=== PATIENT | female | born 1960 | race Caucasian/White ===

== ENCOUNTER → 2023-09-26 06:08 | Outpatient (REF) | payer BC, SELFPAY ==
[2023-09-26 10:43] LABS: ALT (SGPT) 12 U/L (0-35); AST (SGOT) 32 U/L (14-36); Albumin 3.8 g/dl (3.5-5.0); Alkaline Phosphatase 51 U/L (38-126); Blood Urea Nitrogen 14 mg/dl (7-17); Calcium 8.9 mg/dl (8.4-10.2); Carbon Dioxide 27 mmol/L (22-30); Chloride 107 mmol/L (98-107); Glucose 84 mg/dl (70-99); Sodium 138 mmol/L (135-145); Total Bilirubin 0.7 mg/dl (0.2-1.3); Total Protein 8.2 g/dl (6.3-8.2); eGFR > 60.00
[2023-09-26 10:58] LABS: Free T4 1.42 ng/dl (0.78-2.19)
[2023-09-26 11:12] LABS: TSH 2.34 uIU/ml (0.47-4.68)
[2023-09-26 12:29] LABS: Free T3 2.76 pg/ml (2.77-5.27)
[2023-09-27 18:49] LABS: Thyroglobulin Antibodies <0.9 IU/mL (0.0-4.0); Thyroid Peroxidase Ab (TPO) 80.8 IU/mL (0.0-9.0)
== END ==
LOC: HWLAB 06:08
PROVIDERS: ATTENDING PHYSICIAN Nurse Practitioner Family; FAMILY PHYSICIAN Internal Medicine
DX: E06.3 Autoimmune thyroiditis (principal)
CPT/HCPCS: 36415; 80053; 84439; 84443; 84481; 86376; 86800

== ENCOUNTER → 2023-10-31 05:58 | Outpatient (REF) | payer BC, SELFPAY ==
[2023-10-31 08:49] LABS: % Basophils 0.4 % (0-2); % Eosinophils 2.6 % (0-6); % Lymphocytes 13.6 % (20.5-51.1); % Monocytes 15.4 % (1.7-9.3); Absolute Eosinophils 0.1 10^3/uL (0-0.7); Absolute Lymphocytes 0.3 10^3/uL (1.2-3.4); Absolute Monocytes 0.4 10^3/uL (0.1-0.6); Absolute Neutrophils 1.6 10^3/uL (1.4-6.5); Hematocrit 35.3 % (37.0-47.0); Hemoglobin 11.6 g/dL (12.0-16.0); Mean Corp Hgb Conc. 32.9 g/dL (33.0-37.0); Mean Corpuscular Hgb 30.5 pg (27.0-31.0); Mean Corpuscular Volume 92.9 fL (81.0-99.0); Mean Platelet Volume 10.6 fL (7.4-10.4); Nucleated Red Blood Cells % 0 %; Platelet Count 183 10^3/uL (130-400); Red Cell Dist. Width 14.3 % (11.5-14.5); White Blood Cell Count 2.3 10^3/uL (4.8-10.8)
[2023-10-31 08:51] LABS: Urine Albumin Trace (Neg - Trace); Urine Bilirubin Negative (Negative); Urine Character Clear (Clear); Urine Color Yellow; Urine Glucose Negative (Negative); Urine Ketone Negative (Negative); Urine Leukocyte Negative (Negative); Urine Nitrite Negative (Negative); Urine Occult Blood 3+ (Negative); Urine Specific Gravity 1.025 (<1.030); Urine Urobilinogen Negative (Neg - 1+)
[2023-10-31 08:59] LABS: ALT (SGPT) 12 U/L (0-35); AST (SGOT) 32 U/L (14-36); Albumin 3.9 g/dl (3.5-5.0); Alkaline Phosphatase 53 U/L (38-126); Blood Urea Nitrogen 17 mg/dl (7-17); Calcium 8.9 mg/dl (8.4-10.2); Carbon Dioxide 25 mmol/L (22-30); Chloride 108 mmol/L (98-107); Glucose 83 mg/dl (70-99); Potassium 3.7 mmol/L (3.5-5.1); Sodium 138 mmol/L (135-145); Total Bilirubin 0.6 mg/dl (0.2-1.3); Total Protein 8.4 g/dl (6.3-8.2); eGFR > 60.00
[2023-10-31 09:01] LABS: C-Reactive Protein < 5.00 mg/L (0.0-10.00)
[2023-10-31 09:17] LABS: Vitamin D, 25-OH*** 36.6 ng/mL (30-80)
[2023-10-31 09:21] LABS: Protein/creatinine Ratio 0.1; Urine Protein 16 mg/dl
[2023-10-31 09:36] LABS: Urine Mucus Moderate; Urine Squamous Cell 16-20 /LPF (Few)
[2023-10-31 09:37] LABS: Urine Amorphous Seen; Urine Red Blood Cell 70-80 /HPF (0-2)
[2023-10-31 09:38] LABS: Urine Bacteria Few (Negative); Urine White Cell 0-2 /HPF (0-5)
[2023-10-31 09:43] LABS: Erythrocyte Sed Rate 24 mm/hour (0-20)
[2023-11-02 02:44] LABS: ds-DNA Ab, IgG Reflex To Titer 53 IU (0-24)
[2023-11-03 01:39] LABS: Complement C3 74 mg/dl (88-165)
[2023-11-04 11:02] LABS: ds-DNA Ab, IgG Titer <1:10 (<1:10)
== END ==
LOC: HWLAB 05:58
PROVIDERS: ATTENDING PHYSICIAN Internal Medicine; FAMILY PHYSICIAN Internal Medicine
DX: M32.9 Systemic lupus erythematosus, unspecified (principal); M34.9 Systemic sclerosis, unspecified; M60.9 Myositis, unspecified; Z51.81 Encounter for therapeutic drug level monitoring
CPT/HCPCS: 36415; 80053; 81003; 81015; 82306; 82570; 84156; 85025; 85652; 86140; 86160; 86225; 86256

== ENCOUNTER → 2023-11-03 16:20 | Outpatient (REF) | payer BC, SELFPAY ==
[2023-11-03 14:43] LABS: % Basophils 0.3 % (0-2); % Eosinophils 1.6 % (0-6); % Immature Granulocytes 0.3 % (0-0.5); % Lymphocytes 11.7 % (20.5-51.1); % Monocytes 13.3 % (1.7-9.3); % Neutrophils 72.8 % (42.2-75.2); Absolute Eosinophils 0.1 10^3/uL (0-0.7); Absolute Lymphocytes 0.4 10^3/uL (1.2-3.4); Absolute Monocytes 0.4 10^3/uL (0.1-0.6); Absolute Neutrophils 2.3 10^3/uL (1.4-6.5); Hematocrit 33.4 % (37.0-47.0); Hemoglobin 11.1 g/dL (12.0-16.0); Mean Corp Hgb Conc. 33.2 g/dL (33.0-37.0); Mean Corpuscular Volume 93.3 fL (81.0-99.0); Mean Platelet Volume 11.1 fL (7.4-10.4); Nucleated Red Blood Cells % 0 %; Platelet Count 176 10^3/uL (130-400); Red Blood Cell Count 3.58 10^6/uL (4.20-5.40); White Blood Cell Count 3.2 10^3/uL (4.8-10.8)
[2023-11-03 15:56] LABS: Folate 11.6 ng/ml (2.76-20); Vitamin B12 343 pg/ml (239-931)
== END ==
LOC: OIDL 16:20
PROVIDERS: ATTENDING PHYSICIAN Internal Medicine Hematology & Oncology
DX: D72.818 Other decreased white blood cell count (principal)
CPT/HCPCS: 82607; 82746; 85025

== ENCOUNTER → 2023-12-11 07:41 | Outpatient (REF) | payer BC, SELFPAY | LOC: RSP 07:41 | PROVIDERS: ATTENDING PHYSICIAN Internal Medicine; FAMILY PHYSICIAN Internal Medicine | DX: M32.9 Systemic lupus erythematosus, unspecified (principal); M34.9 Systemic sclerosis, unspecified | CPT/HCPCS: 94727; 94729; 88738; 94010 ==

== ENCOUNTER → 2024-02-04 06:05 | Outpatient (REF) | payer BC, SELFPAY ==
[2024-02-04 09:35] LABS: Urine Albumin Negative (Neg - Trace); Urine Bilirubin Negative (Negative); Urine Character Clear (Clear); Urine Color Yellow; Urine Glucose Negative (Negative); Urine Ketone Negative (Negative); Urine Leukocyte Negative (Negative); Urine Nitrite Negative (Negative); Urine Occult Blood Trace (Negative); Urine Specific Gravity 1.015 (<1.030); Urine Urobilinogen Negative (Neg - 1+)
[2024-02-04 09:37] LABS: % Eosinophils 2.7 % (0-6); % Lymphocytes 11.1 % (20.5-51.1); % Monocytes 11.1 % (1.7-9.3); % Neutrophils 75.1 % (42.2-75.2); Absolute Eosinophils 0.1 10^3/uL (0-0.7); Absolute Lymphocytes 0.3 10^3/uL (1.2-3.4); Absolute Monocytes 0.3 10^3/uL (0.1-0.6); Absolute Neutrophils 1.7 10^3/uL (1.4-6.5); Hemoglobin 11.1 g/dL (12.0-16.0); Mean Corp Hgb Conc. 32.6 g/dL (33.0-37.0); Mean Corpuscular Hgb 31.4 pg (27.0-31.0); Mean Corpuscular Volume 96.3 fL (81.0-99.0); Mean Platelet Volume 11.2 fL (7.4-10.4); Nucleated Red Blood Cells % 0 %; Platelet Count 159 10^3/uL (130-400); Red Blood Cell Count 3.53 10^6/uL (4.20-5.40); Red Cell Dist. Width 14.6 % (11.5-14.5)
[2024-02-04 09:51] LABS: ALT (SGPT) < 10 U/L (0-35); AST (SGOT) 28 U/L (14-36); Albumin 3.8 g/dl (3.5-5.0); Alkaline Phosphatase 48 U/L (38-126); Blood Urea Nitrogen 14 mg/dl (7-17); Calcium 8.9 mg/dl (8.4-10.2); Carbon Dioxide 26 mmol/L (22-30); Chloride 109 mmol/L (98-107); Creatine Phosphokinase 61 U/L (30-135); Glucose 88 mg/dl (70-99); Sodium 142 mmol/L (135-145); Total Bilirubin 0.6 mg/dl (0.2-1.3); Total Protein 7.9 g/dl (6.3-8.2); eGFR > 60.00
[2024-02-04 09:58] LABS: Free T4 1.04 ng/dl (0.78-2.19)
[2024-02-04 10:13] LABS: TSH 4.31 uIU/ml (0.47-4.68)
[2024-02-04 10:15] LABS: White Blood Cell Count 2.3 10^3/uL (4.8-10.8)
[2024-02-04 10:17] LABS: Urine Mucus Few
[2024-02-04 10:18] LABS: Urine White Cell 0-2 /HPF (0-5)
[2024-02-04 10:37] LABS: Protein/creatinine Ratio 0.1; Urine Protein 8 mg/dl
[2024-02-04 23:36] LABS: Complement C3 74 mg/dl (88-165)
[2024-02-05 21:52] LABS: Aldolase 3.5 U/L (1.2-7.6)
[2024-02-06 01:27] LABS: ds-DNA Ab, IgG Reflex To Titer 22 IU (0-24)
== END ==
LOC: HWLAB 06:05
PROVIDERS: ATTENDING PHYSICIAN Internal Medicine; FAMILY PHYSICIAN Internal Medicine; REFERRING PHYSICIAN Internal Medicine Endocrinology, Diabetes & Metabolism
DX: M32.9 Systemic lupus erythematosus, unspecified (principal); Z51.81 Encounter for therapeutic drug level monitoring; E06.3 Autoimmune thyroiditis; M34.9 Systemic sclerosis, unspecified
CPT/HCPCS: 36415; 80053; 81003; 81015; 82085; 82550; 82570; 84156; 84439; 84443; 85025; 86160; 86225

== ENCOUNTER → 2024-02-18 15:30 | Outpatient (REF) | payer BC, SELFPAY ==
[2024-02-18 16:28] LABS: Urine Albumin Negative (Neg - Trace); Urine Bilirubin Negative (Negative); Urine Character Clear (Clear); Urine Color Yellow; Urine Glucose Negative (Negative); Urine Ketone Negative (Negative); Urine Leukocyte Negative (Negative); Urine Nitrite Negative (Negative); Urine Occult Blood Negative (Negative); Urine Urobilinogen Negative (Neg - 1+)
[2024-02-18 17:16] LABS: Protein/creatinine Ratio 0.1; Urine Protein 10 mg/dl
== END ==
LOC: REG 15:30
PROVIDERS: ATTENDING PHYSICIAN Internal Medicine; FAMILY PHYSICIAN Internal Medicine; REFERRING PHYSICIAN Surgery
DX: M06.4 Inflammatory polyarthropathy (principal); M32.9 Systemic lupus erythematosus, unspecified; M34.9 Systemic sclerosis, unspecified; M35.00 Sjogren syndrome, unspecified; Z51.81 Encounter for therapeutic drug level monitoring
CPT/HCPCS: 81003; 82570; 84156

== ENCOUNTER → 2024-02-25 14:35 | Outpatient (REF) | payer BC, SELFPAY | LOC: HWRAD 14:35 | PROVIDERS: ATTENDING PHYSICIAN Internal Medicine Endocrinology, Diabetes & Metabolism; FAMILY PHYSICIAN Internal Medicine | DX: E06.3 Autoimmune thyroiditis (principal) | CPT/HCPCS: 76536 ==

== ENCOUNTER → 2024-05-15 08:30 | Outpatient (REF) | payer BC, SELFPAY | LOC: WDC 08:30 | PROVIDERS: ATTENDING PHYSICIAN Obstetrics & Gynecology; FAMILY PHYSICIAN Internal Medicine | DX: Z12.31 Encounter for screening mammogram for malignant neoplasm of breast (principal) | CPT/HCPCS: 77063; 77067 ==

== ENCOUNTER → 2024-06-07 06:08 | Outpatient (REF) | payer BC, SELFPAY ==
[2024-06-07 09:45] LABS: % Basophils 0.4 % (0-2); % Eosinophils 3.5 % (0-6); % Immature Granulocytes 0.4 % (0-0.5); % Lymphocytes 12.9 % (20.5-51.1); % Monocytes 14.1 % (1.7-9.3); % Neutrophils 68.7 % (42.2-75.2); Absolute Eosinophils 0.1 10^3/uL (0-0.7); Absolute Lymphocytes 0.3 10^3/uL (1.2-3.4); Absolute Monocytes 0.4 10^3/uL (0.1-0.6); Absolute Neutrophils 1.8 10^3/uL (1.4-6.5); Hematocrit 33.3 % (37.0-47.0); Mean Corpuscular Hgb 31.3 pg (27.0-31.0); Mean Corpuscular Volume 94.9 fL (81.0-99.0); Mean Platelet Volume 10.3 fL (7.4-10.4); Nucleated Red Blood Cells % 0 %; Platelet Count 172 10^3/uL (130-400); Red Blood Cell Count 3.51 10^6/uL (4.20-5.40); Red Cell Dist. Width 14.3 % (11.5-14.5); White Blood Cell Count 2.6 10^3/uL (4.8-10.8)
[2024-06-07 10:27] LABS: ALT (SGPT) 13 U/L (0-35); AST (SGOT) 27 U/L (14-36); Albumin 3.9 g/dl (3.5-5.0); Alkaline Phosphatase 42 U/L (38-126); Blood Urea Nitrogen 19 mg/dl (7-17); Calcium 9.1 mg/dl (8.4-10.2); Carbon Dioxide 26 mmol/L (22-30); Chloride 107 mmol/L (98-107); Creatine Phosphokinase 53 U/L (30-135); Glucose 90 mg/dl (70-99); Potassium 3.8 mmol/L (3.5-5.1); Sodium 145 mmol/L (135-145); Total Bilirubin 0.5 mg/dl (0.2-1.3); Total Protein 7.8 g/dl (6.3-8.2); eGFR > 60.00
[2024-06-07 10:33] LABS: Urine Albumin Trace (Neg - Trace); Urine Bilirubin Negative (Negative); Urine Character Very Cloudy (Clear); Urine Color Yellow; Urine Glucose Negative (Negative); Urine Ketone Negative (Negative); Urine Leukocyte Trace (Negative); Urine Nitrite Negative (Negative); Urine Occult Blood 2+ (Negative); Urine Urobilinogen Negative (Neg - 1+)
[2024-06-07 10:35] LABS: C-Reactive Protein < 5.00 mg/L (0.0-10.00)
[2024-06-07 11:14] LABS: Urine Bacteria Moderate (Negative); Urine Red Blood Cell 16-20 /HPF (0-2)
[2024-06-07 12:06] LABS: Erythrocyte Sed Rate 24 mm/hour (0-20)
[2024-06-07 13:52] LABS: Complement C3 77 mg/dl (88-165)
[2024-06-07 14:19] LABS: Urine Protein 9 mg/dl
[2024-06-08 23:12] LABS: Aldolase 3.8 U/L (1.2-7.6)
[2024-06-09 16:29] LABS: ds-DNA Ab, IgG Reflex To Titer 36 IU (0-24)
== END ==
LOC: HWLAB 06:08
PROVIDERS: ATTENDING PHYSICIAN Internal Medicine; FAMILY PHYSICIAN Internal Medicine
DX: M06.4 Inflammatory polyarthropathy (principal); M32.9 Systemic lupus erythematosus, unspecified; M34.9 Systemic sclerosis, unspecified; M35.00 Sjogren syndrome, unspecified; Z51.81 Encounter for therapeutic drug level monitoring
CPT/HCPCS: 36415; 80053; 81003; 81015; 82085; 82550; 82570; 84156; 85025; 85652; 86140; 86160; 86225

== ENCOUNTER → 2024-08-20 06:01 | Outpatient (REF) | payer BC, SELFPAY ==
[2024-08-20 09:38] LABS: % Basophils 0.5 % (0-2); % Eosinophils 2.3 % (0-6); % Lymphocytes 13.1 % (20.5-51.1); % Monocytes 15.3 % (1.7-9.3); % Neutrophils 68.8 % (42.2-75.2); Absolute Eosinophils 0.1 10^3/uL (0-0.7); Absolute Lymphocytes 0.3 10^3/uL (1.2-3.4); Absolute Monocytes 0.3 10^3/uL (0.1-0.6); Absolute Neutrophils 1.5 10^3/uL (1.4-6.5); Hematocrit 35.6 % (37.0-47.0); Hemoglobin 11.4 g/dL (12.0-16.0); Mean Corpuscular Hgb 31.6 pg (27.0-31.0); Mean Corpuscular Volume 98.6 fL (81.0-99.0); Mean Platelet Volume 10.9 fL (7.4-10.4); Nucleated Red Blood Cells % 0 %; Platelet Count 157 10^3/uL (130-400); Red Blood Cell Count 3.61 10^6/uL (4.20-5.40); Red Cell Dist. Width 13.4 % (11.5-14.5); White Blood Cell Count 2.2 10^3/uL (4.8-10.8)
[2024-08-20 10:15] LABS: Vitamin D, 25-OH*** 26.8 ng/mL (30-80)
[2024-08-20 10:33] LABS: Ferritin 14.7 ng/ml (11.1-264.0)
[2024-08-20 10:54] LABS: HDL Cholesterol 67 mg/dl; Iron 77 ug/dl (37-170); LDL Cholesterol, Calculated 120 mg/dl; Total Cholesterol 202 mg/dl (50-199); Triglyceride 78 mg/dl (10-149); Very Low Density Lipoprotein 15 mg/dl (0-30)
[2024-08-20 11:03] LABS: Percent Saturation 29 % (20-50); Total Iron Binding Capacity 260 ug/dl (265-497)
[2024-08-20 11:04] LABS: Folate 9.7 ng/ml (2.76-20); Vitamin B12 512 pg/ml (239-931)
== END ==
LOC: HWLAB 06:01
PROVIDERS: ATTENDING PHYSICIAN Internal Medicine Hematology & Oncology; FAMILY PHYSICIAN Internal Medicine; REFERRING PHYSICIAN Internal Medicine
DX: E78.49 Other hyperlipidemia (principal); D72.818 Other decreased white blood cell count; D51.9 Vitamin B12 deficiency anemia, unspecified; D70.9 Neutropenia, unspecified
CPT/HCPCS: 36415; 80061; 82306; 82607; 82728; 82746; 83540; 83550; 85025

== ENCOUNTER → 2024-10-16 07:10 | Outpatient (REF) | payer BC, SELFPAY ==
[2024-10-16 08:43] LABS: Urine Albumin 1+ (Neg - Trace); Urine Bilirubin Negative (Negative); Urine Character Clear (Clear); Urine Color Yellow; Urine Glucose Negative (Negative); Urine Ketone Negative (Negative); Urine Leukocyte Negative (Negative); Urine Nitrite Negative (Negative); Urine Occult Blood Negative (Negative); Urine Specific Gravity 1.025 (<1.030); Urine Urobilinogen Negative (Neg - 1+)
[2024-10-16 08:55] LABS: Urine Mucus Many
[2024-10-16 08:56] LABS: Urine Bacteria Moderate (Negative)
[2024-10-16 09:07] LABS: ALT (SGPT) 12 U/L (0-35); AST (SGOT) 26 U/L (14-36); Albumin 3.9 g/dl (3.5-5.0); Alkaline Phosphatase 51 U/L (38-126); Blood Urea Nitrogen 19 mg/dl (7-17); Calcium 9.2 mg/dl (8.4-10.2); Carbon Dioxide 27 mmol/L (22-30); Chloride 106 mmol/L (98-107); Creatine Phosphokinase 46 U/L (30-135); Glucose 83 mg/dl (70-99); Potassium 4.3 mmol/L (3.5-5.1); Sodium 139 mmol/L (135-145); Total Bilirubin 0.7 mg/dl (0.2-1.3); eGFR 56.46
[2024-10-16 09:14] LABS: C-Reactive Protein < 5.00 mg/L (0.0-10.00)
[2024-10-16 09:39] LABS: Erythrocyte Sed Rate 15 mm/hour (0-20)
[2024-10-16 09:40] LABS: Urine Protein < 5 mg/dl
[2024-10-16 09:44] LABS: TSH Reflex To Free T4 3.98 uIU/ml (0.47-4.68)
[2024-10-16 10:30] LABS: % Basophils 0.4 % (0-2); % Eosinophils 1.8 % (0-6); % Lymphocytes 11.9 % (20.5-51.1); % Monocytes 11.9 % (1.7-9.3); Absolute Lymphocytes 0.3 10^3/uL (1.2-3.4); Absolute Monocytes 0.3 10^3/uL (0.1-0.6); Absolute Neutrophils 1.7 10^3/uL (1.4-6.5); Hematocrit 37.9 % (37.0-47.0); Hemoglobin 12.4 g/dL (12.0-16.0); Mean Corp Hgb Conc. 32.7 g/dL (33.0-37.0); Mean Corpuscular Hgb 31.8 pg (27.0-31.0); Mean Corpuscular Volume 97.2 fL (81.0-99.0); Mean Platelet Volume 10.6 fL (7.4-10.4); Nucleated Red Blood Cells % 0 %; Platelet Count 157 10^3/uL (130-400); Red Cell Dist. Width 13.3 % (11.5-14.5); White Blood Cell Count 2.3 10^3/uL (4.8-10.8)
[2024-10-17 21:59] LABS: Aldolase 3.3 U/L (1.2-7.6)
[2024-10-17 23:29] LABS: Complement C3 80 mg/dl (88-165)
== END ==
LOC: REG 07:10
PROVIDERS: ATTENDING PHYSICIAN Internal Medicine; FAMILY PHYSICIAN Internal Medicine
DX: M32.9 Systemic lupus erythematosus, unspecified (principal); M34.9 Systemic sclerosis, unspecified; M35.00 Sjogren syndrome, unspecified; E06.3 Autoimmune thyroiditis
CPT/HCPCS: 36415; 80053; 81003; 81015; 82085; 82550; 82570; 84156; 84443; 85025; 85652; 86140; 86160

== ENCOUNTER → 2024-11-26 06:05 | Outpatient (REF) | payer BC, SELFPAY ==
[2024-11-26 09:44] LABS: % Basophils 0.4 % (0-2); % Eosinophils 2.8 % (0-6); % Immature Granulocytes 0.4 % (0-0.5); % Lymphocytes 14.7 % (20.5-51.1); % Monocytes 12.7 % (1.7-9.3); Absolute Eosinophils 0.1 10^3/uL (0-0.7); Absolute Lymphocytes 0.4 10^3/uL (1.2-3.4); Absolute Monocytes 0.3 10^3/uL (0.1-0.6); Absolute Neutrophils 1.7 10^3/uL (1.4-6.5); Hematocrit 37.1 % (37.0-47.0); Hemoglobin 12.3 g/dL (12.0-16.0); Mean Corp Hgb Conc. 33.2 g/dL (33.0-37.0); Mean Corpuscular Hgb 31.5 pg (27.0-31.0); Mean Corpuscular Volume 95.1 fL (81.0-99.0); Mean Platelet Volume 10.9 fL (7.4-10.4); Nucleated Red Blood Cells % 0 %; Platelet Count 172 10^3/uL (130-400); Red Cell Dist. Width 13.8 % (11.5-14.5); White Blood Cell Count 2.5 10^3/uL (4.8-10.8)
[2024-11-26 09:59] LABS: Iron 104 ug/dl (37-170)
[2024-11-26 10:09] LABS: Percent Saturation 46 % (20-50); Total Iron Binding Capacity 222 ug/dl (265-497)
[2024-11-26 11:02] LABS: Folate 9.8 ng/ml (2.76-20); Vitamin B12 896 pg/ml (239-931)
== END ==
LOC: HWLAB 06:05
PROVIDERS: ATTENDING PHYSICIAN Internal Medicine Hematology & Oncology; FAMILY PHYSICIAN Internal Medicine
DX: D72.818 Other decreased white blood cell count (principal); D51.9 Vitamin B12 deficiency anemia, unspecified; D70.9 Neutropenia, unspecified
CPT/HCPCS: 36415; 82607; 82746; 83540; 83550; 85025

== ENCOUNTER → 2025-02-26 07:08 | Outpatient (REF) | payer BC, SELFPAY ==
[2025-02-26 08:38] LABS: Hematocrit 35.9 % (37.0-47.0); Hemoglobin 11.9 g/dL (12.0-16.0); Mean Corp Hgb Conc. 33.1 g/dL (33.0-37.0); Mean Corpuscular Volume 95.5 fL (81.0-99.0); Nucleated Red Blood Cells % 0 %; Platelet Count 147 10^3/uL (130-400); Red Cell Dist. Width 14.4 % (11.5-14.5)
[2025-02-26 09:05] LABS: ALT (SGPT) 10 U/L (0-35); AST (SGOT) 24 U/L (14-36); Albumin 4.1 g/dl (3.5-5.0); Alkaline Phosphatase 43 U/L (38-126); Blood Urea Nitrogen 23 mg/dl (7-17); Calcium 9.0 mg/dl (8.4-10.2); Carbon Dioxide 26 mmol/L (22-30); Chloride 109 mmol/L (98-107); Glucose 80 mg/dl (70-99); Iron 94 ug/dl (37-170); Potassium 4.3 mmol/L (3.5-5.1); Sodium 141 mmol/L (135-145); Total Protein 8.6 g/dl (6.3-8.2); eGFR 56.46
[2025-02-26 09:15] LABS: Total Iron Binding Capacity 278 ug/dl (265-497)
[2025-02-26 09:39] LABS: Ferritin 17.1 ng/ml (11.1-264.0)
[2025-02-26 10:11] LABS: Folate 7.3 ng/ml (2.76-20); Vitamin B12 571 pg/ml (239-931)
== END ==
LOC: REG 07:08
PROVIDERS: Nurse Practitioner Adult Health; ATTENDING PHYSICIAN Internal Medicine; FAMILY PHYSICIAN Internal Medicine; REFERRING PHYSICIAN Internal Medicine Hematology & Oncology
DX: M32.9 Systemic lupus erythematosus, unspecified (principal); Z51.81 Encounter for therapeutic drug level monitoring; D72.818 Other decreased white blood cell count; D51.9 Vitamin B12 deficiency anemia, unspecified; D70.9 Neutropenia, unspecified
CPT/HCPCS: 36415; 80053; 82607; 82728; 82746; 83540; 83550; 85025

== ENCOUNTER 2025-03-31 07:10 | Emergency (ER) | payer BC, SELFPAY ==
[2025-03-31 07:13] VITALS: BP 141/81
[2025-03-31 07:50] VITALS: BMI 20.5
[2025-03-31 08:01] VITALS: BP 129/62
--- NOTE | 2025-03-31 08:03 | ED.GENMED ---
History of Present Illness
General
Chief Complaint: Abdominal Pain
Source: patient
Exam Limitations: none
Time Seen by Provider: 03/31/25 07:51
Nursing documentation reviewed up to this point in time: agreed with
History of Present Illness
History of Present Illness:
Note:
CHIEF COMPLAINT(S)
Abdominal pain and nausea for the past two days.
HISTORY OF PRESENT ILLNESS
The patient is a 64-year-old female presenting with a chief complaint of abdominal pain and nausea lasting for the past two days. The patient reports that she was working from home when she began experiencing significant abdominal pain, described as
'excruciating,' which did not resolve with rest. She attempted to alleviate the pain by taking acetaminophen, suspecting it was related to gastrointestinal issues, but this provided no relief. The patient indicates the pain is accompanied by a
sensation of pressure in the abdomen. She has a history of an appendectomy performed around three years ago.
The patient is concerned about the possibility of kidney stones, emphasizing that the pain is localized to the abdomen. Upon further discussion, it is clarified that while she experiences kidney-related discomfort on her left side, she does not
describe this as the current issue. The plan is to perform a CT scan with contrast and check laboratory work. Pain management and nausea relief with Ondansetron IV are planned, as well as IV fluids for dehydration.
PAST MEDICAL AND SURGICAL HISTORY
The patient underwent an appendectomy approximately three years ago.
CHRONIC MEDICAL CONDITIONS SIGNIFICANTLY AFFECTING CARE
Gastroesophageal Reflux Disease (GERD).
MEDICATIONS
- Acetaminophen as needed for pain.
- Medications for GERD (unspecified, possibly a combination therapy including pantoprazole).
-.
PHYSICAL EXAM
General: Alert, no acute distress.
Skin: Warm, dry.
Head: Normocephalic, atraumatic.
Neck: Supple, trachea midline.
Eyes, Ears, Nose, and Throat: Oral mucosa moist.
Cardiovascular: Normal peripheral perfusion, no edema.
Respiratory: Breathing is unlabored, lung laboy clear bilaterally.
Gastrointestinal: Abdomen soft; bilateral lower abdominal tenderness noted.
Back: Normal range of motion, normal alignment.
Musculoskeletal: Normal range of motion, normal strength.
Neurological: Alert and oriented to person, place, time, and situation. No focal neurological deficit observed.
Psychiatric: Cooperative, appropriate mood & affect.
PLAN
- Perform CT scan of the abdomen with contrast to evaluate the suspected cause of the pain.
- Conduct laboratory tests to further investigate the cause of symptoms.
- Administer Ondansetron IV for nausea relief.
- Provide IV fluids due to suspected dehydration.
- Monitor pain levels and provide analgesics if required by the patient.
- Obtain a urine sample to aid in diagnostic evaluation.
DIFFERENTIAL DIAGNOSIS
The Differential Diagnosis includes, in no particular order and is not limited to:
1. Nephrolithiasis (Kidney Stones)
2. Bowel Obstruction
3. Diverticulitis
4. Urinary Tract Infection
5. Gastroenteritis
6. Peptic Ulcer Disease
7. Irritable Bowel Syndrome
8. Abdominal Adhesions
9. Appendicitis (recurrent symptoms despite past surgery)
10. Gastroesophageal Reflux Disease (GERD) related complications
CARE-UPDATE
03/31/25 - 12:00
Patient has been diagnosed with sigmoid diverticulitis confirmed by CT scan. The patient has a history of diverticulosis but is experiencing diverticulitis for the first time. Treatment will be initiated with Augmentin, as the patient has a known
allergy to Bactrim (sulfa). The patient is advised to maintain a bland diet during the course of treatment. Follow-up with Dr. Kirk gastroenterology and primary care has been planned. All blood tests were normal, and there is no indication of a
kidney stone. The patient is informed that while the condition may recur, there were no immediate complications such as obstructions. Prescription will be sent to the pharmacy on record.
Disposition:
SUMMARY OF ENCOUNTER
The patient, a 64-year-old female, presented to the emergency department with complaints of abdominal pain and nausea persisting for two days. Initial evaluation indicated significant abdominal tenderness and the patient reported 'excruciating' pain
that did not resolve with [id number] medications. A CT scan of the abdomen was performed and confirmed a diagnosis of sigmoid diverticulitis. The patient was treated with intravenous fluids for suspected dehydration and Ondansetron IV for
nausea. Antibiotic treatment was initiated with Amoxicillin-Clavulanate (Augmentin) due to the confirmed infection and an allergy to Bactrim.
DISPOSITION
Discharge.
ASSESSMENT
Sigmoid diverticulitis.
PLAN
The patient will be discharged with a prescription for Amoxicillin-Clavulanate (Augmentin) to be taken for seven days. She is advised to adhere to a bland diet for three days. Follow-up appointments with her primary care physician and Dr. Kirk in
gastroenterology have been arranged. The patient was informed that there were no signs of abscess from the CT scan and she should monitor for any symptoms of complications.
INDEPENDENT REVIEW OF LABS AND INTERPRETATION OF TESTS
My independent interpretation of the CT scan of the abdomen shows sigmoid diverticulitis without any evidence of abscess or obstruction.
FOLLOW-UP INSTRUCTIONS
The patient is advised to follow up with her primary care doctor and Dr. Kirk in gastroenterology. She is instructed to contact her healthcare providers immediately if symptoms worsen or new symptoms develop.
MEDICATION RECONCILIATION
Prescription for Amoxicillin-Clavulanate (Augmentin) was given for a seven-day course.
MEDICAL DECISION MAKING
-Complexity of Data Reviewed: Chronic conditions affecting care include Gastroesophageal Reflux Disease (GERD). Differential Diagnosis considered included nephrolithiasis, bowel obstruction, urinary tract infection, and others.
-Data:
Category [address] scan of the abdomen reviewed and independently interpreted.
-Risk:
Consideration of Admission/Observation: Escalation of care including admission/observation was considered given the complexity and risk of the patients presenting complaint, exam findings, and underlying comorbidities. However, ultimately I feel the
patient is safe for outpatient management with close follow up. Reasoning: Work-up including CT scan reassuring, no acute life/organ threatening processes identified, patients symptoms well controlled upon reevaluation, vitals are stable, patient
agreeable with discharge, reliable for follow-up.
DIAGNOSIS
Sigmoid diverticulitis (K57.32).
Past History
Past History
ED Past Medical History: Other (Lyme disease,sjomgrens)
ED Past Surgical History: Appendectomy
Social History
Tobacco: Non-smoker
Alcohol: None
Drug: None
Personal:
Employment: Employed
Family History
Family History: Other (Noncontributory)
Phy Exam
Physical Exam
Physical Exam:
.
Course
Orders/Labs/Results
Orders:
Orders
03/31/25 08:00
Iohexol [Omnipaque] See Protocol PO NOW STA
03/31/25 08:01
CT Abd/pel W Iv And Oral Contr Urgent
Comment:
Reason For Exam: bilateral lower abd pain
03/31/25 08:02
IV Insert/Care/Rem.- Treatment PRN
Complete Blood Count/With Diff Urgent
0.9% Sodium Chloride 500 ml [Nss] 500 ml IV BOLUS
Ondansetron Injectable [Zofran] 4 mg IV NOW STA
03/31/25 08:13
Comprehensive Metabolic Panel Urgent
03/31/25 11:26
Urinalysis Reflex To Culture Urgent
Date Specimen was Collected: 03/31/25
Time Specimen was Collected: 11:21
Abnormal Lab Results
03/31/25 03/31/25 03/31/25
08:02 08:13 11:26
RBC 3.78 L 10^6/uL
(4.20-5.40)
Hct 35.5 L %
(37.0-47.0)
MCH 32.0 H pg
(27.0-31.0)
MPV 11.6 H fL
(7.4-10.4)
Absolute Neuts (auto) 8.1 H 10^3/uL
(1.4-6.5)
Absolute Lymphs (auto) 0.4 L 10^3/uL
(1.2-3.4)
Absolute Monos (auto) 0.9 H 10^3/uL
(0.1-0.6)
Neutrophils % 85.9 H %
(42.2-75.2)
Lymphocytes % 4.6 L %
(20.5-51.1)
Chloride 108 H mmol/L
(98-107)
Carbon Dioxide 20 L mmol/L
(22-30)
Total Bilirubin 1.6 H mg/dl
(0.2-1.3)
Urine Ketones 2+ A
(Negative)
03/31/25 08:02
03/31/25 08:13
Vital Signs
Initial and Last Documented VS:
Initial Vital Signs
Temp Pulse Resp BP Pulse Ox
99.2 F 94 16 141/81 98
03/31/25 07:13 03/31/25 07:13 03/31/25 07:13 03/31/25 07:13 03/31/25 07:13
Last Documented Vital Signs
Temp Pulse Resp BP Pulse Ox
99.2 F 94 16 70/51 100
03/31/25 07:13 03/31/25 07:13 03/31/25 07:13 03/31/25 10:02 03/31/25 11:27
*Pulse Oximetry
SaO2: 98
Oxygen Mode of Delivery: Room air
Patient hypoxic: no
*Critical Care Note
Total Time (30-74mins, 75-104mins- exclusive of procedures): Not Applicable
ED Attending Note
-
Portions of this chart may have been created with voice recognition software.� Occasional wrong word or��sound alike� substitutions may have occurred due to the inherent limitations of voice recognition software.
Discharge Plan
Departure
Patient Disposition: Home (Routine Discharge)
Date of Disposition: 03/31/25
Time of Disposition: 12:00
Patient with high blood pressure during this ER visit?: Yes
Condition: Good
Discharge Problem:
Sigmoid diverticulitis
Instructions: Diverticulitis (DC), Ritchie diet, BLOOD PRESSURE
Prescriptions:
New
amoxicillin-pot clavulanate 875-125 mg tablet
1 tab PO BID Qty: 14 0RF
No Action
cyanocobalamin (vitamin B-12) 1,000 mcg/mL Solution
1,000 mcg IM QMONTH
torsemide 10 mg tablet
10 mg PO .every other day Qty: 15 0RF
Referrals:
Lenora Harvey DO [Family Provider, Family Practice] - Call in 1-3 days for appt
Interventions
Interventions:
*Risk Screen - Suicide Last Done: 03/31/25 07:13
*General Assessment Last Done: 03/31/25 07:50
*Neglect/Abuse Screening Last Done: 03/31/25 07:50
*ED- Fall Risk Assessment Last Done: 03/31/25 07:50
*ED COVID-19 Vaccine History Last Done: 03/31/25 07:13
YJ-Hhmvnw-Rgljaceytq Assessment Last Done: 03/31/25 07:50
Discharge Date and Time
Print Language: AMHARIC
[2025-03-31] MEDS: ZOFRAN 4 MG IV (08:08)
[2025-03-31] MEDS: OMNIPAQUE 50 ML PO (08:08)
[2025-03-31] MEDS: NSS 500 IV (08:09)
[2025-03-31 08:19] LABS: Hematocrit 35.5 % (37.0-47.0); Hemoglobin 12.1 g/dL (12.0-16.0); Mean Corp Hgb Conc. 34.1 g/dL (33.0-37.0); Mean Corpuscular Volume 93.9 fL (81.0-99.0); Nucleated Red Blood Cells % 0 %; Platelet Count 174 10^3/uL (130-400); Red Cell Dist. Width 14.3 % (11.5-14.5)
[2025-03-31 09:00] VITALS: BP 132/62
[2025-03-31 09:15] LABS: ALT (SGPT) < 10 U/L (0-35); AST (SGOT) 21 U/L (14-36); Albumin 4.0 g/dl (3.5-5.0); Alkaline Phosphatase 53 U/L (38-126); Blood Urea Nitrogen 15 mg/dl (7-17); Calcium 9.0 mg/dl (8.4-10.2); Carbon Dioxide 20 mmol/L (22-30); Chloride 108 mmol/L (98-107); Estimated Creatinine Clearance 48 ml/min; Glucose 80 mg/dl (70-99); Potassium 4.2 mmol/L (3.5-5.1); Sodium 139 mmol/L (135-145); Total Protein 8.2 g/dl (6.3-8.2); eGFR > 60.00
[2025-03-31 10:02] VITALS: BP 70/51
[2025-03-31 11:37] LABS: Urine Character Clear (Clear)
[2025-03-31 12:00] VITALS: BP 131/69
== END 2025-03-31 12:15 | disposition home or self-care (01) ==
LOC: EMR 07:10
PROVIDERS: EMERGENCY PHYSICIAN Emergency Medicine; FAMILY PHYSICIAN Internal Medicine
DX: K57.32 Diverticulitis of large intestine without perforation or abscess without bleeding (principal); E86.0 Dehydration; Z90.49 Acquired absence of other specified parts of digestive tract
CPT/HCPCS: 96374; 96361; 99284; 74177; 80053; 81003; 85025; Q9967

== ENCOUNTER → 2025-05-20 07:19 | Outpatient (REF) | payer BC, SELFPAY | LOC: HWRAD 07:19 | PROVIDERS: ATTENDING PHYSICIAN Internal Medicine; FAMILY PHYSICIAN Internal Medicine | DX: M85.80 Other specified disorders of bone density and structure, unspecified site (principal) | CPT/HCPCS: 77080 ==

== ENCOUNTER → 2025-05-21 07:37 | Outpatient (REF) | payer BC, SELFPAY | LOC: WDC 07:37 | PROVIDERS: ATTENDING PHYSICIAN Obstetrics & Gynecology; FAMILY PHYSICIAN Internal Medicine | DX: Z12.31 Encounter for screening mammogram for malignant neoplasm of breast (principal) | CPT/HCPCS: 77063; 77067 ==

== ENCOUNTER → 2025-06-02 06:14 | Outpatient (REF) | payer BC, SELFPAY ==
[2025-06-02 08:58] LABS: Urine Character Clear (Clear)
[2025-06-02 09:17] LABS: Hematocrit 35.2 % (37.0-47.0); Hemoglobin 11.6 g/dL (12.0-16.0); Mean Corp Hgb Conc. 33.0 g/dL (33.0-37.0); Mean Corpuscular Volume 96.4 fL (81.0-99.0); Nucleated Red Blood Cells % 0 %; Platelet Count 168 10^3/uL (130-400); Red Cell Dist. Width 13.5 % (11.5-14.5)
[2025-06-02 09:29] LABS: Urine Red Blood Cell 0-2 /HPF (0-2)
[2025-06-02 10:20] LABS: ALT (SGPT) 11 U/L (0-35); AST (SGOT) 21 U/L (14-36); Albumin 3.9 g/dl (3.5-5.0); Alkaline Phosphatase 42 U/L (38-126); Blood Urea Nitrogen 20 mg/dl (7-17); Calcium 8.8 mg/dl (8.4-10.2); Carbon Dioxide 26 mmol/L (22-30); Chloride 111 mmol/L (98-107); Glucose 90 mg/dl (70-99); HDL Cholesterol 61 mg/dl; LDL Cholesterol, Calculated 132 mg/dl; Potassium 4.0 mmol/L (3.5-5.1); Sodium 141 mmol/L (135-145); Total Protein 8.3 g/dl (6.3-8.2); Very Low Density Lipoprotein 19 mg/dl (0-30); eGFR > 60.00
[2025-06-02 10:24] LABS: C-Reactive Protein < 5.00 mg/L (0.0-10.00)
[2025-06-02 10:41] LABS: Vitamin D, 25-OH*** 31.3 ng/mL (30-80)
[2025-06-03 18:18] LABS: ds-DNA Ab, IgG Reflex To Titer 15 IU (0-24)
== END ==
LOC: HWLAB 06:14
PROVIDERS: ATTENDING PHYSICIAN Internal Medicine; FAMILY PHYSICIAN Internal Medicine
DX: M32.9 Systemic lupus erythematosus, unspecified (principal); M34.9 Systemic sclerosis, unspecified; M35.00 Sjogren syndrome, unspecified; E55.9 Vitamin D deficiency, unspecified; E06.3 Autoimmune thyroiditis; E78.49 Other hyperlipidemia; N20.0 Calculus of kidney; D51.0 Vitamin B12 deficiency anemia due to intrinsic factor deficiency
CPT/HCPCS: 36415; 80053; 80061; 81003; 81015; 82306; 82570; 84156; 84443; 85025; 85652; 86140; 86160; 86225

== ENCOUNTER → 2025-07-15 06:40 | Outpatient (REF) | payer BC, SELFPAY ==
[2025-07-15 07:21] LABS: Hematocrit 36.4 % (37.0-47.0); Hemoglobin 11.7 g/dL (12.0-16.0); Mean Corp Hgb Conc. 32.1 g/dL (33.0-37.0); Mean Corpuscular Volume 95.3 fL (81.0-99.0); Nucleated Red Blood Cells % 0 %; Platelet Count 161 10^3/uL (130-400); Red Cell Dist. Width 14.0 % (11.5-14.5)
== END ==
LOC: REG 06:40
PROVIDERS: ATTENDING PHYSICIAN Internal Medicine; FAMILY PHYSICIAN Internal Medicine
DX: M32.9 Systemic lupus erythematosus, unspecified (principal); M34.9 Systemic sclerosis, unspecified; M35.00 Sjogren syndrome, unspecified
CPT/HCPCS: 36415; 85025